=== PATIENT | female | born 1960 | race Caucasian/White ===

== ENCOUNTER 2020-10-24 14:29 | Emergency (ER) | payer OTHER ==
[~2020-10-24] VITALS: Ht 165.1 cm; Wt 114.3 kg
[2020-10-24] MEDS ORDERED: MORPHINE SULFATE INJ 4 MG/ML DISP.SYRIN ONE (14:59)
[2020-10-24] MEDS ORDERED: ONDANSETRON HCL/PF 4 MG/2 ML VIAL ONE (14:59)
[2020-10-24] MEDS ORDERED: MORPHINE SULFATE INJ 2 MG/ML DISP.SYRIN IV ONE (15:00)
[2020-10-24] MEDS ORDERED: ONDANSETRON HCL/PF 4 MG/2 ML VIAL IV ONE (15:00)
--- NOTE | 2020-10-24 15:00 | NUR ---
Patient came in to the er c/o Right shoulder pain. On room air, breathing evenly and unlabored. Connected to the monitor and pulse ox. Kept comfortable, will continue to monitor accordingly.
[2020-10-24] MEDS ORDERED: OXYC-128 PO (16:21)
[2020-10-24] MEDS ORDERED: IBUP-1957 PO (16:21)
[2020-10-24 17:35] VITALS: BP 118/77
--- NOTE | 2020-10-24 17:36 | NUR ---
Patient discharged to home in stable condition. Written and verbal after care instructions given. Patient verbalizes understanding of instruction.IV removed. Catheter intact and site benign. Pressure and 4x4 applied to site. No bleeding noted.
== END 2020-10-24 17:36 | disposition home or self-care (01) ==
LOC: ER 14:38
DX: S42.221A 2-part displaced fracture of surgical neck of right humerus, initial encounter for closed fracture (principal); I10 Essential (primary) hypertension; W01.0XXA Fall on same level from slipping, tripping and stumbling without subsequent striking against object, initial encounter; Y93.89 Activity, other specified; Y92.89 Other specified places as the place of occurrence of the external cause; Y99.8 Other external cause status
CPT/HCPCS: 73030; 73060; 96374; 96375; 99291; J2270; J2405